=== PATIENT | male | born 1965 | race Caucasian/White ===

== ENCOUNTER 2021-08-22 20:56 | Emergency (ER) | payer OTHER ==
[2021-08-22] MEDS ORDERED: TYLENOL EXTRA500 MG PO (21:56)
[2021-08-22] MEDS ORDERED: CEPHALEXIN500 M1 PO (21:56)
[2021-08-22] MEDS ORDERED: IBUPROFEN600 MG PO (21:56)
== END 2021-08-22 22:02 | disposition home or self-care (01) ==
LOC: ER1 20:56
DX: S80.812A Abrasion, left lower leg, initial encounter (principal); S80.811A Abrasion, right lower leg, initial encounter; L08.9 Local infection of the skin and subcutaneous tissue, unspecified; G20 Parkinson's disease; W01.0XXA Fall on same level from slipping, tripping and stumbling without subsequent striking against object, initial encounter; Y92.830 Public park as the place of occurrence of the external cause
CPT/HCPCS: 99283